=== PATIENT | female | born 1950 | race Caucasian/White ===

== ENCOUNTER 2019-11-05 13:55 | Inpatient (IN) | payer OTHER, MEDICAID ==
[~2019-11-05] VITALS: Ht 165.1 cm; Wt 96.9 kg
[~2019-11-05 13:55] MED LIST: ALBU18 IN; ASPI81CH43 GT; BACL10TA PO; CLON0.5T3 PO; DIPH25TA26 PO; GABA-339 PO; LEVO50TA7 PO; LOPE2CAP PO; NOR10T PO; OXYB5TAB24 PO; PAR20T PO; WARFARIN 1 MG PO
[2019-11-05] MEDS ORDERED: SODIUM CHLORIDE 0.9% 500 ML IV ONE (14:07)
[2019-11-05] MEDS ORDERED: LORazepam 2MG/ML-1ML VIAL IV ONE ×2 (14:15→16:15)
[2019-11-05] MEDS ORDERED: diphenhdrAMINE HCL 50 MG/1 ML VL IV ONE (14:15)
[2019-11-05 14:35] LABS: Basophils # (auto) 0.2 10 ^3/uL (0-0.2); Eosinophils # (auto) 0.1 10 ^3/uL (0-0.8); Eosinophils % (auto) 0.7 % (0.0-7.0); Hemoglobin 13.4 g/dL (12.2-16.2); Lymphocytes # (auto) 1.6 10 ^3/uL (0.4-5.4); Lymphocytes % (auto) 21.4 % (10.0-50.0); Mean Corpuscular Hemoglobin 28.7 pg (28.0-32.0); Mean Corpuscular Hgb Conc. 32.6 g/dL (32.0-36.0); Mean Corpuscular Volume 88.1 fL (80.0-100.0); Monocytes # (auto) 0.6 10 ^3/uL (0-1.3); Monocytes % (auto) 7.5 % (0.0-12.0); Neutrophils # (auto) 5.1 10 ^3/uL (1.6-8.6); Neutrophils % (auto) 67.4 % (37.0-80.0); Nucleated Red Blood Cells % 0.1 %; Platelet Count (auto) 288 10^3/uL (140-450); Red Blood Cells 4.66 10^6/uL (4.0-5.20); Red Cell Distribution Width 15.2 % (11.8-14.3); White Blood Cell 7.5 10^3/uL (4.4-10.8)
[2019-11-05 14:49] LABS: Albumin 4.2 g/dL (3.4-5.0); Calcium 8.7 mg/dL (8.5-10.1); Magnesium 1.8 mg/dL (1.6-2.6); Potassium 4.1 mmol/L (3.5-5.1)
[2019-11-05 14:52] LABS: BUN/Creatinine Ratio 9.3; Bilirubin, Total 0.3 mg/dL (0.2-1.0); Total Protein 6.7 g/dL (6.4-8.2)
[2019-11-05 15:22] LABS: INR 2.91 (0.9-1.15); Partial Thromboplastin Time 38.7 sec (23.64-32.05)
[2019-11-05 16:57] LABS: Urine Bacteria NONE SEEN /hpf (None Seen); Urine Blood Negative /uL (Negative); Urine Hyaline Cast FEW /lpf (0 - 2); Urine Mucus FEW (None Seen); Urine Specific Gravity 1.018 (1.001-1.035); Urine WBC <1 /hpf (0 - 5)
[2019-11-05 18:04] LABS: Alcohol, Urine < 3.0 mg/dL (0-10); Amphetamine Screen, Urine NEGATIVE (NEGATIVE); Barbiturate Scree,Urine NEGATIVE (NEGATIVE); Benzodiazephine Screen, Urine NEGATIVE (NEGATIVE); Cannabinoid Screen, Urine NEGATIVE (NEGATIVE); Cocaine Screen, Urine NEGATIVE (NEGATIVE); Opiate Scree,Urine POSITIVE (NEGATIVE); Phencyclidine Screen, Urine NEGATIVE (NEGATIVE)
[2019-11-05] MEDS ORDERED: NITROGLYCERIN 0.4 MG SL TAB SL PRN (19:45)
[2019-11-05] MEDS ORDERED: MORPHINE SULF INJ 2 MG/ML SYRINGE 1ML IV PRN (19:45)
[2019-11-05 21:00] VITALS: BP 115/73
[2019-11-06] MEDS ORDERED: LORazepam 2MG/ML-1ML VIAL IV PRN ×3 (00:30→20:30)
[2019-11-06] MEDS ORDERED: CEFTRIAXONE SODIUM 2 GM in D5W 5% 50 ML IV ONE (01:30)
[2019-11-06] MEDS ORDERED: NITROGLYCERIN 0.4 MG SL TAB SL PRN (01:30)
[2019-11-06] MEDS ORDERED: MORPHINE SULF INJ 2 MG/ML SYRINGE 1ML IV PRN ×2 (01:30)
[2019-11-06] MEDS ORDERED: ALUM & MAG HYDROX-SIMETH LIQ(MAALOX) 30 ML PO PRN (01:30)
[2019-11-06] MEDS ORDERED: ONDANSETRON HCL 4 MG/2 ML VIAL IV PRN (01:30)
[2019-11-06] MEDS: SODIUM CHLORIDE 0.9% 1,000 ML IV SCH ×2 (02:00→18:09)
[2019-11-06 02:23] VITALS: BP 115/73
[2019-11-06] MEDS: cefTRIAXone 1GM/50ML D5W 50 ML IV SCH ×2 (02:26→02:58)
[2019-11-06] MEDS ORDERED: CEFTRIAXONE IV ONE ×2 (02:30)
[2019-11-06] MEDS: IPRATROPIUM BROM 0.5 MG/2.5ML INH SOL NEB SCH ×6 (02:34→22:07)
[2019-11-06 05:00] VITALS: BP 133/81
[2019-11-06 06:16] LABS: Basophils # (auto) 0.1 10 ^3/uL (0-0.2); Basophils % (auto) 1.4 % (0.0-2.0); Eosinophils # (auto) 0.1 10 ^3/uL (0-0.8); Eosinophils % (auto) 1.1 % (0.0-7.0); Hematocrit 39.5 % (36.0-46.0); Lymphocytes # (auto) 1.9 10 ^3/uL (0.4-5.4); Lymphocytes % (auto) 23.4 % (10.0-50.0); Mean Corpuscular Hemoglobin 28.8 pg (28.0-32.0); Mean Corpuscular Hgb Conc. 32.8 g/dL (32.0-36.0); Mean Corpuscular Volume 87.8 fL (80.0-100.0); Monocytes # (auto) 0.8 10 ^3/uL (0-1.3); Monocytes % (auto) 9.5 % (0.0-12.0); Neutrophils # (auto) 5.4 10 ^3/uL (1.6-8.6); Neutrophils % (auto) 64.6 % (37.0-80.0); Nucleated Red Blood Cells % 0.1 %; Platelet Count (auto) 257 10^3/uL (140-450); Red Blood Cells 4.51 10^6/uL (4.0-5.20); White Blood Cell 8.3 10^3/uL (4.4-10.8)
[2019-11-06 06:33] LABS: INR 3.39 (0.9-1.15); Partial Thromboplastin Time 40.5 sec (23.64-32.05)
[2019-11-06 06:39] LABS: Albumin 3.6 g/dL (3.4-5.0); BUN/Creatinine Ratio 8.8; Bilirubin, Total 0.3 mg/dL (0.2-1.0); Calcium 8.2 mg/dL (8.5-10.1); Phosphorus 2.2 mg/dL (2.5-4.90); Total Protein 6.2 g/dL (6.4-8.2)
[2019-11-06] MEDS: LEVOTHYROXINE SODIUM 50 MCG TAB PO SCH (06:56)
[2019-11-06 08:00] VITALS: BP 142/73
[2019-11-06 12:00] VITALS: BP 113/66
[2019-11-06 16:00] VITALS: BP 137/77
[2019-11-06] MEDS: HYDROcodone-ACET 5/325MG TAB PO PRN (19:01)
[2019-11-06 22:00] VITALS: BP 117/63
[2019-11-06] MEDS: OXcarbazepine 300 MG TAB PO SCH (23:07)
[2019-11-06] MEDS: FLUoxetine HCL 10 MG CAP PO SCH (23:07)
[2019-11-07] MEDS: IPRATROPIUM BROM 0.5 MG/2.5ML INH SOL NEB SCH ×3 (02:10→10:46)
[2019-11-07 05:00] VITALS: BP 149/65
[2019-11-07] MEDS: LEVOTHYROXINE SODIUM 50 MCG TAB PO SCH (06:08)
[2019-11-07] MEDS: HYDROcodone-ACET 5/325MG TAB PO PRN ×2 (06:09→13:33)
[2019-11-07 06:30] LABS: INR 1.58 (0.9-1.15); Partial Thromboplastin Time 33.5 sec (23.64-32.05)
[2019-11-07 06:31] LABS: Calcium 8.1 mg/dL (8.5-10.1); Potassium 4.1 mmol/L (3.5-5.1)
[2019-11-07 06:35] LABS: BUN/Creatinine Ratio 13.9
[2019-11-07] MEDS ORDERED: cefTRIAXone 1GM/50ML D5W 50 ML IV SCH (09:00)
[2019-11-07] MEDS ORDERED: TRAZ150T84 PO (09:03)
[2019-11-07] MEDS ORDERED: CHOL20007 PO (09:03)
[2019-11-07] MEDS ORDERED: BUSP7.5T4 PO (09:03)
[2019-11-07] MEDS ORDERED: OXCA600T3 PO (09:03)
[2019-11-07] MEDS ORDERED: OXCA300S PO (09:03)
[2019-11-07] MEDS ORDERED: FLUO60TA7 PO (09:03)
[2019-11-07] MEDS ORDERED: WARF4TAB33 PO (09:03)
[2019-11-07] MEDS ORDERED: LEVE250T3 PO (09:03)
[2019-11-07] MEDS ORDERED: METF-370 PO (09:40)
[2019-11-07] MEDS ORDERED: CEFTRIAXONE SODIUM 2 GM in D5W 5% 50 ML IV SCH (10:00)
[2019-11-07] MEDS: FLUoxetine HCL 10 MG CAP PO SCH (10:04)
[2019-11-07] MEDS: OXcarbazepine 300 MG TAB PO SCH (10:05)
[2019-11-07 10:30] VITALS: BP 115/88
[2019-11-07] MEDS: SODIUM CHLORIDE 0.9% 1,000 ML IV SCH (10:49)
[2019-11-07 13:00] VITALS: BP 135/86
[2019-11-07] MEDS ORDERED: WARFARIN SODIUM 5 MG TAB PO ONE (17:00)
== END 2019-11-07 16:05 | disposition home health service (06) | DRG 91 ==
LOC: ER 13:55 → EDUNIT# 13:55 → EDBD 13:55 → TELE 13:56 → TELE-WESTW 20:45
PROVIDERS: ADMIT Hospitalist; ATTEND Internal Medicine
DX: G92 Toxic encephalopathy (principal); N17.0 Acute kidney failure with tubular necrosis; G24.02 Drug induced acute dystonia; N39.0 Urinary tract infection, site not specified; D68.4 Acquired coagulation factor deficiency; J44.1 Chronic obstructive pulmonary disease with (acute) exacerbation; F23 Brief psychotic disorder; D68.59 Other primary thrombophilia; N18.3 Chronic kidney disease, stage 3 (moderate); E88.81 Metabolic syndrome and other insulin resistance; E66.9 Obesity, unspecified; E03.9 Hypothyroidism, unspecified; G43.909 Migraine, unspecified, not intractable, without status migrainosus; F31.9 Bipolar disorder, unspecified; E11.22 Type 2 diabetes mellitus with diabetic chronic kidney disease; F17.210 Nicotine dependence, cigarettes, uncomplicated; F41.9 Anxiety disorder, unspecified; G40.909 Epilepsy, unspecified, not intractable, without status epilepticus; I12.9 Hypertensive chronic kidney disease with stage 1 through stage 4 chronic kidney disease, or unspecified chronic kidney disease; E78.5 Hyperlipidemia, unspecified; Z79.01 Long term (current) use of anticoagulants; Z79.82 Long term (current) use of aspirin; Z82.0 Family history of epilepsy and other diseases of the nervous system; Z83.2 Family history of diseases of the blood and blood-forming organs and certain disorders involving the immune mechanism; Z83.3 Family history of diabetes mellitus; Z81.8 Family history of other mental and behavioral disorders; Z90.710 Acquired absence of both cervix and uterus; Z79.899 Other long term (current) drug therapy; Z86.73 Personal history of transient ischemic attack (TIA), and cerebral infarction without residual deficits; Z68.34 Body mass index [BMI] 34.0-34.9, adult
CPT/HCPCS: 36415; 36600; 70450; 80048; 80053; 80061; 80156; 80307; 81001; 82542; 82805; 83036; 83735; 83880; 84100; 84443; 84484; 85025; 85610; 85730; 87040; 94640; 96374; 96375; 97163; G0378; J0696; J7060

== ENCOUNTER 2022-03-27 09:54 | Inpatient (IN) | payer OTHER, MEDICAID ==
[~2022-03-27] VITALS: Ht 165.1 cm; Wt 90.6 kg
[~2022-03-27 09:54] MED LIST changes: -ASPI81CH43 GT; -BACL10TA PO; +BUSP7.5T8 PO; +CHOL20007 PO; -CLON0.5T3 PO; +FLUO60TA7 PO; -GABA-339 PO; -LOPE2CAP PO; +METF-370 PO; -NOR10T PO; +OXCA600T3 PO; -OXYB5TAB24 PO; -PAR20T PO; +TRAZ150T84 PO; +WARF4TAB33 PO; -WARFARIN 1 MG PO
[2022-03-27 12:01] LABS: Basophils # (auto) 0.1 10 ^3/uL (0-0.2); Basophils % (auto) 1.1 % (0.0-2.0); Eosinophils # (auto) 0 10 ^3/uL (0-0.8); Eosinophils % (auto) 0.2 % (0.0-7.0); Hematocrit 38.5 % (36.0-46.0); Hemoglobin 12.3 g/dL (12.2-16.2); Lymphocytes # (auto) 1.1 10 ^3/uL (0.4-5.4); Lymphocytes % (auto) 19.7 % (10.0-50.0); Mean Corpuscular Volume 90.8 fL (80.0-100.0); Monocytes # (auto) 0.8 10 ^3/uL (0-1.3); Monocytes % (auto) 14.9 % (0.0-12.0); Neutrophils # (auto) 3.6 10 ^3/uL (1.6-8.6); Neutrophils % (auto) 64.1 % (37.0-80.0); Nucleated Red Blood Cells % 0.1 %; Red Blood Cells 4.24 10^6/uL (4.0-5.20); Red Cell Distribution Width 14.3 % (11.8-14.3); White Blood Cell 5.7 10^3/uL (4.4-10.8)
[2022-03-27 12:18] LABS: Albumin 3.7 g/dL (3.4-5.0); Calcium 8.6 mg/dL (8.5-10.1); Potassium 3.9 mmol/L (3.5-5.1)
[2022-03-27 12:23] LABS: BUN/Creatinine Ratio 16.4; Bilirubin, Total 0.3 mg/dL (0.2-1.0); Total Protein 7.2 g/dL (6.4-8.2)
[2022-03-27] MEDS ORDERED: SODIUM CHLORIDE 0.9% 1,000 ML IV ONE (12:45)
[2022-03-27] MEDS ORDERED: LORazepam 2MG/ML-1ML VIAL IV ONE (12:45)
[2022-03-27] MEDS ORDERED: OXcarbazepine 300 MG TAB PO ONE (16:00)
[2022-03-27] MEDS ORDERED: LORazepam 2MG/ML-1ML VIAL IV PRN (16:15)
[2022-03-27] MEDS ORDERED: ACETAMINOPHEN 325 MG TAB PO PRN (16:15)
[2022-03-27] MEDS ORDERED: ONDANSETRON HCL 4 MG/2 ML VIAL IV PRN (16:15)
[2022-03-27] MEDS: SODIUM CHLORIDE 0.9% 1,000 ML IV SCH (16:31)
[2022-03-27] MEDS ORDERED: MORPHINE SULFATE INJ 2 MG/ml SYRG IV PRN (17:00)
[2022-03-27] MEDS ORDERED: PANTOPRAZOLE 40 MG/10 ML VIAL INJ IV ONE (17:00)
[2022-03-27] MEDS ORDERED: NITROGLYCERIN 0.4 MG SL TAB SL PRN (17:00)
[2022-03-27 17:05] LABS: INR 2.97 (0.9-1.15); Partial Thromboplastin Time 51.2 sec (24.6-33.4)
[2022-03-27 17:59] LABS: Cholesterol 153 mg/dL (< 200); HDL Cholesterol 68 mg/dL (40-59); LDL Cholesterol 83 mg/dL (< 100); Triglycerides 120 mg/dL (< 150)
[2022-03-27 22:57] VITALS: BP 120/42
[2022-03-27] MEDS: guaiFENesin 200 MG/10 ML UD PO PRN (23:11)
[2022-03-27] MEDS ORDERED: BACL20TA PO (23:19)
[2022-03-27] MEDS ORDERED: OXYB10TA14 PO (23:19)
[2022-03-28 02:14] LABS: Alcohol, Urine < 3.0 mg/dL (0-10); Amphetamine Screen, Urine NEGATIVE (NEGATIVE); Barbiturate Scree,Urine NEGATIVE (NEGATIVE); Benzodiazephine Screen, Urine POSITIVE (NEGATIVE); Cannabinoid Screen, Urine NEGATIVE (NEGATIVE); Cocaine Screen, Urine NEGATIVE (NEGATIVE); Opiate Scree,Urine NEGATIVE (NEGATIVE); Phencyclidine Screen, Urine NEGATIVE (NEGATIVE)
[2022-03-28 02:33] LABS: Urine Bacteria MOD /hpf (None Seen); Urine Blood Negative /uL (Negative); Urine Specific Gravity 1.016 (1.001-1.035); Urine WBC 3 /hpf (0 - 5)
[2022-03-28] MEDS ORDERED: INFLUENZA QUAD 2022-2023 0.5 ML SYRG IM ONE (04:30)
[2022-03-28 05:00] VITALS: BP_SYST 118; BP_SYST 148; BP_SYST 179; BP_DIAS 45; BP_DIAS 82; BP_DIAS 99
[2022-03-28 06:16] LABS: Basophils # (auto) 0.1 10 ^3/uL (0-0.2); Basophils % (auto) 1.3 % (0.0-2.0); Eosinophils # (auto) 0 10 ^3/uL (0-0.8); Eosinophils % (auto) 0.3 % (0.0-7.0); Hematocrit 34.1 % (36.0-46.0); Hemoglobin 11.3 g/dL (12.2-16.2); Lymphocytes # (auto) 1.2 10 ^3/uL (0.4-5.4); Lymphocytes % (auto) 32.3 % (10.0-50.0); Mean Corpuscular Hemoglobin 29.9 pg (28.0-32.0); Mean Corpuscular Hgb Conc. 33.2 g/dL (32.0-36.0); Mean Corpuscular Volume 90.1 fL (80.0-100.0); Monocytes # (auto) 0.6 10 ^3/uL (0-1.3); Monocytes % (auto) 15.7 % (0.0-12.0); Neutrophils # (auto) 1.9 10 ^3/uL (1.6-8.6); Neutrophils % (auto) 50.4 % (37.0-80.0); Red Blood Cells 3.79 10^6/uL (4.0-5.20); Red Cell Distribution Width 14.4 % (11.8-14.3); White Blood Cell 3.8 10^3/uL (4.4-10.8)
[2022-03-28 06:52] LABS: Albumin 3.3 g/dL (3.4-5.0); Potassium 3.7 mmol/L (3.5-5.1)
[2022-03-28 06:58] LABS: BUN/Creatinine Ratio 18.4
[2022-03-28 06:59] LABS: Calcium 7.8 mg/dL (8.5-10.1)
[2022-03-28 07:00] LABS: Bilirubin, Total 0.3 mg/dL (0.2-1.0)
[2022-03-28 09:00] VITALS: BP 124/52
[2022-03-28] MEDS ORDERED: FUROSEMIDE 20 MG/2 ML VIAL IV ONE (09:00)
[2022-03-28] MEDS: guaiFENesin 200 MG/10 ML UD PO PRN (09:49)
[2022-03-28] MEDS: OXcarbazepine 300 MG TAB PO SCH ×3 (09:49→22:40)
[2022-03-28] MEDS: SODIUM CHLORIDE 0.9% 1,000 ML IV SCH (09:50)
[2022-03-28] MEDS: ENOXAPARIN SOD 40 MG/0.4 ML SYRINGE SC SCH (09:50)
[2022-03-28] MEDS ORDERED: FUROSEMIDE 20 MG/2 ML VIAL IV SCH (10:00)
[2022-03-28] MEDS ORDERED: PANTOPRAZOLE 40 MG/10 ML VIAL INJ IV SCH (10:00)
[2022-03-28] MEDS ORDERED: levoFLOXacin 500MG 100 ML IV ONE (11:15)
[2022-03-28] MEDS: IPRATROPIUM BROM 0.5 MG/2.5ML INH SOL NEB SCH ×2 (12:00→18:00)
[2022-03-28] MEDS: ALBUTEROL SULF 2.5 MG/0.5ML(0.5%) NEB SOLN NEB SCH ×2 (12:00→18:00)
[2022-03-28 12:47] LABS: Folate (Folic Acid) 10.1 ng/mL (5.38-24)
[2022-03-28 13:00] VITALS: BP 138/53
[2022-03-28] MEDS ORDERED: OSELTAMIVIR 75 MG CAP PO ONE (14:30)
[2022-03-28 16:51] VITALS: BP 133/54
[2022-03-28 20:28] VITALS: BP 133/54
[2022-03-28] MEDS: OSELTAMIVIR 75 MG CAP PO SCH (21:35)
[2022-03-28] MEDS: FUROSEMIDE 20 MG/2 ML VIAL IV SCH (21:46)
[2022-03-28 22:00] VITALS: BP 149/61
[2022-03-28] MEDS ORDERED: LORazepam 2MG/ML-1ML VIAL IV PRN (22:00)
[2022-03-28] MEDS: traZODone HCL 50 MG TAB PO SCH (22:40)
[2022-03-29] VITALS (8 sets, daily range): BP systolic 123–195; BP diastolic 56–122
[2022-03-29] MEDS: ALBUTEROL SULF 2.5 MG/0.5ML(0.5%) NEB SOLN NEB SCH ×3 (00:15→18:22)
[2022-03-29] MEDS: IPRATROPIUM BROM 0.5 MG/2.5ML INH SOL NEB SCH ×3 (00:15→18:22)
[2022-03-29] MEDS: guaiFENesin 200 MG/10 ML UD PO PRN ×3 (04:29→21:31)
[2022-03-29] MEDS: OXcarbazepine 300 MG TAB PO SCH ×3 (05:42→21:31)
[2022-03-29 05:49] LABS: Basophils # (auto) 0 10 ^3/uL (0-0.2); Basophils % (auto) 0.9 % (0.0-2.0); Eosinophils # (auto) 0 10 ^3/uL (0-0.8); Eosinophils % (auto) 0.1 % (0.0-7.0); Hematocrit 39.3 % (36.0-46.0); Hemoglobin 12.9 g/dL (12.2-16.2); Lymphocytes # (auto) 1.5 10 ^3/uL (0.4-5.4); Lymphocytes % (auto) 35.5 % (10.0-50.0); Mean Corpuscular Hemoglobin 29.5 pg (28.0-32.0); Mean Corpuscular Hgb Conc. 32.7 g/dL (32.0-36.0); Mean Corpuscular Volume 90.1 fL (80.0-100.0); Monocytes # (auto) 0.6 10 ^3/uL (0-1.3); Monocytes % (auto) 13.4 % (0.0-12.0); Neutrophils # (auto) 2.1 10 ^3/uL (1.6-8.6); Neutrophils % (auto) 50.1 % (37.0-80.0); Nucleated Red Blood Cells % 0.2 %; Red Blood Cells 4.36 10^6/uL (4.0-5.20); Red Cell Distribution Width 14.2 % (11.8-14.3); White Blood Cell 4.3 10^3/uL (4.4-10.8)
[2022-03-29 05:59] LABS: Calcium 8.5 mg/dL (8.5-10.1); Potassium 3.5 mmol/L (3.5-5.1)
[2022-03-29 06:02] LABS: BUN/Creatinine Ratio 14.4
[2022-03-29] MEDS ORDERED: POTASSIUM CHL 20 Meq TABLET PO ONE (09:15)
[2022-03-29] MEDS: OSELTAMIVIR 75 MG CAP PO SCH ×2 (10:00→21:30)
[2022-03-29] MEDS: FUROSEMIDE 20 MG/2 ML VIAL IV SCH ×2 (10:19→21:30)
[2022-03-29] MEDS: LOPERAMIDE HCL 2 MG CAP/TAB PO PRN ×2 (10:19→14:29)
[2022-03-29] MEDS: ENOXAPARIN SOD 40 MG/0.4 ML SYRINGE SC SCH (10:19)
[2022-03-29] MEDS: FLORASTOR (S. BOULARDII) 250 MG CAP PO SCH (10:20)
[2022-03-29] MEDS: levoFLOXacin 500MG 100 ML IV SCH (10:20)
[2022-03-29] MEDS: traZODone HCL 50 MG TAB PO SCH (21:30)
[2022-03-30] MEDS: IPRATROPIUM BROM 0.5 MG/2.5ML INH SOL NEB SCH ×4 (00:18→13:30)
[2022-03-30] MEDS: ALBUTEROL SULF 2.5 MG/0.5ML(0.5%) NEB SOLN NEB SCH ×4 (00:18→13:30)
[2022-03-30 05:00] VITALS: BP 129/65
[2022-03-30] MEDS: OXcarbazepine 300 MG TAB PO SCH (05:34)
[2022-03-30 06:27] LABS: Basophils # (auto) 0.1 10 ^3/uL (0-0.2); Basophils % (auto) 1.2 % (0.0-2.0); Eosinophils # (auto) 0 10 ^3/uL (0-0.8); Eosinophils % (auto) 0.3 % (0.0-7.0); Hematocrit 42.2 % (36.0-46.0); Hemoglobin 13.6 g/dL (12.2-16.2); Lymphocytes % (auto) 40.4 % (10.0-50.0); Mean Corpuscular Hemoglobin 28.9 pg (28.0-32.0); Mean Corpuscular Hgb Conc. 32.2 g/dL (32.0-36.0); Mean Corpuscular Volume 89.9 fL (80.0-100.0); Monocytes # (auto) 0.6 10 ^3/uL (0-1.3); Monocytes % (auto) 12.2 % (0.0-12.0); Neutrophils # (auto) 2.3 10 ^3/uL (1.6-8.6); Neutrophils % (auto) 45.9 % (37.0-80.0); Nucleated Red Blood Cells % 0.1 %; Red Cell Distribution Width 14.2 % (11.8-14.3)
[2022-03-30 07:20] LABS: BUN/Creatinine Ratio 18.1; Calcium 8.7 mg/dL (8.5-10.1); Potassium 3.9 mmol/L (3.5-5.1)
[2022-03-30 09:00] VITALS: BP 131/71
[2022-03-30] MEDS ORDERED: FURO1TAB33 PO (09:33)
[2022-03-30] MEDS ORDERED: DOXY100C2 PO (09:33)
[2022-03-30] MEDS ORDERED: POTA10TA32 PO (09:33)
[2022-03-30] MEDS: levoFLOXacin 500MG 100 ML IV SCH (09:53)
[2022-03-30] MEDS: FLORASTOR (S. BOULARDII) 250 MG CAP PO SCH (09:53)
[2022-03-30] MEDS: FUROSEMIDE 20 MG/2 ML VIAL IV SCH (09:53)
[2022-03-30] MEDS: ENOXAPARIN SOD 40 MG/0.4 ML SYRINGE SC SCH (09:54)
[2022-03-30] MEDS: OSELTAMIVIR 75 MG CAP PO SCH (10:00)
[2022-03-30 11:42] VITALS: BP_SYST 130; BP_SYST 131; BP_DIAS 68; BP_DIAS 71
[2022-03-30] MEDS ORDERED: INFLUENZA QUAD 2022-2023 0.5 ML SYRG IM ONE (11:45)
[2022-03-30 13:00] VITALS: BP 140/78
== END 2022-03-30 14:14 | disposition home or self-care (01) | DRG 100 ==
LOC: EDUNIT# 09:54 → EDBD 09:54 → ER 09:59 → OVERFLOW 16:17 → CENTRAL 21:55 → TELE-CENTR 03-28 11:47
PROVIDERS: ADMIT Nurse Practitioner Family; ATTEND Internal Medicine
DX: G40.909 Epilepsy, unspecified, not intractable, without status epilepticus (principal); I50.23 Acute on chronic systolic (congestive) heart failure; J11.00 Influenza due to unidentified influenza virus with unspecified type of pneumonia; G45.9 Transient cerebral ischemic attack, unspecified; M47.12 Other spondylosis with myelopathy, cervical region; J96.10 Chronic respiratory failure, unspecified whether with hypoxia or hypercapnia; N30.00 Acute cystitis without hematuria; I13.0 Hypertensive heart and chronic kidney disease with heart failure and stage 1 through stage 4 chronic kidney disease, or unspecified chronic kidney disease; J44.0 Chronic obstructive pulmonary disease with (acute) lower respiratory infection; G90.8 Other disorders of autonomic nervous system; Z20.822 Contact with and (suspected) exposure to COVID-19; E11.22 Type 2 diabetes mellitus with diabetic chronic kidney disease; G24.9 Dystonia, unspecified; G89.4 Chronic pain syndrome; N18.32 Chronic kidney disease, stage 3b; E66.9 Obesity, unspecified; F41.9 Anxiety disorder, unspecified; M50.30 Other cervical disc degeneration, unspecified cervical region; F43.22 Adjustment disorder with anxiety; Z63.72 Alcoholism and drug addiction in family; Z99.81 Dependence on supplemental oxygen; Z81.1 Family history of alcohol abuse and dependence; Z87.828 Personal history of other (healed) physical injury and trauma; Z68.33 Body mass index [BMI] 33.0-33.9, adult; Z72.0 Tobacco use; Z79.84 Long term (current) use of oral hypoglycemic drugs
CPT/HCPCS: 36415; 70450; 71045; 72125; 80048; 80053; 80061; 80307; 81001; 82306; 82607; 82746; 82962; 83036; 83605; 83735; 83880; 84443; 85025; 85610; 85730; 87086; 87426; 87493; 87804; 90686; 93005; 93306; 93886; 94640; 95819; 96361; 96374; C9113; G0378; J1956

== ENCOUNTER 2023-01-21 11:26 | Emergency (ER) | payer OTHER, MEDICAID ==
[~2023-01-21] VITALS: Ht 165.1 cm; Wt 90.0 kg
[~2023-01-21 11:26] MED LIST changes: +BACL20TA PO; +DOXY100C4 PO; +FURO1TAB33 PO; +OXYB10TA14 PO; +POTA-228 PO; +WARF-112 PO; -WARF4TAB33 PO
[2023-01-21] MEDS ORDERED: HYDROcodone-ACET 5/325MG TAB PO ONE (12:00)
[2023-01-21 12:34] LABS: Alanine Aminotransferase 36 U/L (7-40); Alkaline Phosphatase 48 U/L (46-116); Anion Gap 4 (5-15); BUN/Creatinine Ratio 13.8 (10.0-20.0); Blood Urea Nitrogen 15 mg/dL (9-23); Calcium 9.4 mg/dL (8.7-10.4); Carbon Dioxide 31 mmol/L (20-30); Chloride 105 mmol/L (98-107); Glucose 85 mg/dL (74-106); Lipase 42 U/L (12-53); Potassium 4.2 mmol/L (3.5-5.1); Sodium 140 mmol/L (136-145)
[2023-01-21 12:35] LABS: Aspartate Aminotransferase 64 U/L (13-40); Bilirubin, Total 0.3 mg/dL (0.2-1.0); Total Protein 6.2 g/dL (5.7-8.2)
[2023-01-21 12:42] LABS: Basophils # (auto) 0.1 10 ^3/uL (0-0.2); Basophils % (auto) 1.2 % (0.0-2.0); Eosinophils # (auto) 0.4 10 ^3/uL (0-0.8); Eosinophils % (auto) 4.9 % (0.0-7.0); Hematocrit 39.9 % (36.0-46.0); Hemoglobin 12.8 g/dL (12.2-16.2); Lymphocytes # (auto) 2.3 10 ^3/uL (0.4-5.4); Lymphocytes % (auto) 29.5 % (10.0-50.0); Mean Corpuscular Hemoglobin 29.4 pg (28.0-32.0); Mean Corpuscular Hgb Conc. 32.2 g/dL (32.0-36.0); Mean Corpuscular Volume 91.3 fL (80.0-100.0); Monocytes # (auto) 0.7 10 ^3/uL (0-1.3); Monocytes % (auto) 8.6 % (0.0-12.0); Neutrophils # (auto) 4.3 10 ^3/uL (1.6-8.6); Neutrophils % (auto) 55.8 % (37.0-80.0); Red Blood Cells 4.37 10^6/uL (4.0-5.20); Red Cell Distribution Width 14.4 % (11.8-14.3); White Blood Cell 7.6 10^3/uL (4.4-10.8)
[2023-01-21] MEDS ORDERED: TETANUS-DIPTH-ACEL PERTUSSIS 0.5ML SYR Tdap IM ONE (14:00)
[2023-01-21] MEDS ORDERED: NEOMYCIN-BACITRACIN-POLYM UNITDOSE PKG TOP OINT TOP ONE (14:00)
[2023-01-21] MEDS ORDERED: BACIOIN15 TOP (14:05)
[2023-01-21 14:30] VITALS: BP 112/68; PULSE 81; RESP 16; TEMP 96.8; O2SAT 92
== END 2023-01-21 14:36 | disposition home or self-care (01) ==
LOC: ER 11:26
DX: S80.02XA Contusion of left knee, initial encounter (principal); S60.212A Contusion of left wrist, initial encounter; S60.10XA Contusion of unspecified finger with damage to nail, initial encounter; Z88.0 Allergy status to penicillin; Z88.2 Allergy status to sulfonamides; Z88.8 Allergy status to other drugs, medicaments and biological substances; Z79.899 Other long term (current) drug therapy; W18.09XA Striking against other object with subsequent fall, initial encounter; Y93.89 Activity, other specified; Y92.89 Other specified places as the place of occurrence of the external cause; Y99.8 Other external cause status
CPT/HCPCS: 36415; 70450; 71045; 72125; 73030; 73080; 73110; 73130; 73562; 80053; 82962; 83690; 83880; 84484; 85025; 90471; 90715; 93005

== ENCOUNTER 2024-12-17 06:45 | Day surgery (SDC) | payer OTHER, MEDICAID ==
[~2024-12-17] VITALS: Ht 165.1 cm; Wt 92.1 kg
[~2024-12-17 06:45] MED LIST changes: -ALBU18 IN; +ALLO100T PO; +ATOR20TA50 PO; -CHOL20007 PO; +DICL1GEL72 EX; -DIPH25TA26 PO; -DOXY100C4 PO; +FLUO-125 PO; +FLUO1TAB12 PO; -FLUO60TA7 PO; -FURO1TAB33 PO; +FURO40TA4 PO; +HYDR-4798 PO; +KEP500T PO; +MOME1AER3 INH; +NITR50CA52 PO; +OXCA300T50 PO; +OXYB5TAB14 PO; +POM; -POTA-228 PO; +TRAM50TA2 PO; +TRAZ-228 PO; -TRAZ150T84 PO; +UMEC1INH IN; -WARF-112 PO; +WARF4TAB69 PO
[2024-12-17] MEDS: IODIXANOL 320MG/ML 100ML BTL IV ONE (07:39)
[2024-12-17] MEDS: VERAPAMIL 2.5MG/ML INJ 2ML VIAL IV ONE (09:36)
[2024-12-17] MEDS: HEPARIN SODIUM (PORCINE) 5000 UNITS/ML 1ML VIAL ONE (09:36)
[2024-12-17] MEDS: ANGIOMAX 250 MG VIAL IV ONE (09:36)
[2024-12-17] MEDS: MIDAZOLAM HCL 2MG/2ML 2ml VIAL (1mg/ml) ONE (09:37)
[2024-12-17] MEDS: fentaNYL CITRATE 100 MCG/2 ML VL ONE (09:37)
[2024-12-17] MEDS: SODIUM CHL 0.9% 0 ML ONE (09:38)
[2024-12-17] MEDS: LIDOCAINE 2%HCL (LOCAL ANESTH.) INJ 20ML MDV ONE (09:38)
[2024-12-17] MEDS ORDERED: IODIXANOL 320MG/ML 100ML BTL IV ONE (09:39)
[2024-12-17] MEDS: HEPARIN IN NS 1000Units/500mL 1,500 ML ONE (09:39)
[2024-12-17] MEDS: methylPREDNISolone SOD SUCC 125 MG/2 ML VL ONE (10:45)
[2024-12-17] MEDS: FAMOTIDINE (10MG/ML) 2ML VL IV ONE (10:46)
[2024-12-17] MEDS: diphenhdrAMINE HCL 50 MG/1 ML VL ONE (10:46)
[2024-12-17 11:13] VITALS: BP 128/76; PULSE 66; RESP 14; TEMP 98.3; O2SAT 95
--- NOTE | 2024-12-17 11:19 | DVHOP2 ---
Operative Report Procedures performed: Left heart catheterization and bilateral coronary angiogram Moderate sedation Diagnosis: No angiographic evidence for epicardial coronary artery disease Mild systolic compression of mid LAD LVEF of 60% with LVEDP of 17 mm Hg Cardiac suggestion for management: Optimized medical therapy Lifestyle and risk factor modifications Findings: LVEF: 60% LVEDP: 17 There was no transaortic valve pressure gradient Left main: Left main was coming off the left sinus of Valsalva. It was free of disease. LAD: LAD was coming off the left main. It provided usual numbers of diagonals and septals. Mid LAD had mild systolic compression. Other portions of LAD and branches were free of disease. LCX: LCX was coming off the left main. LCX throughout its course and branches was free of disease. RCA: RCA was coming off the right sinus of Valsalva. It was a dominant vessel and provided RPDA/RPLS. RCA throughout its course and branches was free of disease. Presentation: Patient is a 73-year-old will who presented to the office with dyspnea on exertion. 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 Echocardiogram of November 2024 revealed ejection fraction was 65-70%, [id number] aortic insufficiency, trace MR/TR. Nuclear stress test of December 2023 was abnormal. Patient was noncompliant with followups. Patient was sent for cardiac catheterization. Procedure: After obtaining informed consent, the patient was brought to the terrazzo laborer. She was prepped and draped in sterile fashion. Right radial artery was used for access site. 1 mg of Versed and 25 mcg of fentanyl were used for moderate sedation. As the patient was allergic to shellfish, she was given the cocktail (Solu-Medrol/Benadryl/famotidine). Using Seldinger technique, the right radial artery was accessed and a 6 Cypriot slender sheath was inserted into it. 2.5 mg of verapamil and 100 mcg of nitroglycerin were given as a cocktail into right radial sheath. 5000 units of heparin was given peripherally. A 5 Cypriot tiger 4 diagnostic catheter was used to perform left heart catheterization (obtaining pressures and performing left ventriculography) and bilateral coronary angiography. There was no indication for any transcatheter revascularization. Total bleeding was less than 5 mL. There was no dissection/hematoma/perforation. Patient tolerated the procedure with no complication. Right radial artery access site was managed by deploying a TR band. Fluoroscopy time: 3.7 minutes contrast: 15 mL of ANNIE Morgan MD Dec 17, 2024 11:19
[2024-12-17 11:28] VITALS: BP 127/59; PULSE 70; RESP 13; O2SAT 92
[2024-12-17 11:46] VITALS: BP 165/109; PULSE 70; RESP 17; O2SAT 94
[2024-12-17 11:59] VITALS: BP 144/68; PULSE 71; RESP 14; O2SAT 92
[2024-12-17 12:20] VITALS: BP 143/68; PULSE 69; RESP 16; O2SAT 93
[2024-12-17 12:50] VITALS: BP 113/74; PULSE 77; RESP 15; O2SAT 94
== END 2024-12-17 14:34 | disposition home or self-care (01) ==
LOC: CATH 06:45
PROVIDERS: ATTEND Internal Medicine Cardiovascular Disease
DX: R06.09 Other forms of dyspnea (principal); R94.39 Abnormal result of other cardiovascular function study; I35.1 Nonrheumatic aortic (valve) insufficiency; I12.9 Hypertensive chronic kidney disease with stage 1 through stage 4 chronic kidney disease, or unspecified chronic kidney disease; E11.22 Type 2 diabetes mellitus with diabetic chronic kidney disease; N18.9 Chronic kidney disease, unspecified; J44.9 Chronic obstructive pulmonary disease, unspecified; E78.5 Hyperlipidemia, unspecified; Z79.01 Long term (current) use of anticoagulants; Z86.718 Personal history of other venous thrombosis and embolism; Z98.51 Tubal ligation status; Z90.712 Acquired absence of cervix with remaining uterus; Z98.890 Other specified postprocedural states; Z88.0 Allergy status to penicillin; Z88.1 Allergy status to other antibiotic agents; Z88.2 Allergy status to sulfonamides; Z91.040 Latex allergy status; Z91.013 Allergy to seafood
CPT/HCPCS: 93458; C1894; J1200; J1644; J2250; J2919; J3010; J3490; Q9967; 99152